=== PATIENT | male | born 1960 | race African-American/Black ===

== ENCOUNTER 2016-05-01 01:45 | Inpatient (IN) | payer OTHER ==
[~2016-05-01] VITALS: Ht 182.9 cm; Wt 122.5 kg
[2016-05-01 02:26] LABS: PLATELET COUNT 212 x10^3mcL (130-400); RED CELL DISTRIBUTION WIDTH 12.6 % (11.5-14.5)
[2016-05-01 02:29] LABS: BASOPHIL % 2.1 % (0-2)
[2016-05-01 02:34] LABS: CALCIUM 8.3 mg/dL (8.5-10.1); CHLORIDE SERUM 104 mmol/L (98-107); GFR1 > 60 mL/min; GLUCOSE SERUM 150 mg/dL (74-106); POTASSIUM SERUM 3.7 mmol/L (3.5-5.1); SODIUM SERUM 142 mmol/L (136-145)
[2016-05-01 02:39] LABS: ALBUMIN 3.5 g/dL (3.4-5.0); ALKALINE PHOSPHATASE 86 U/L (46-116); ALT/SGPT 32 U/L (16-63); AST/SGOT 14 U/L (15-37); BILIRUBIN TOTAL 0.65 mg/dL (0.20-1.00)
[2016-05-01] MEDS ORDERED: GLYBURIDE5 MG PO (03:51)
[2016-05-01] MEDS ORDERED: NOR10 PO (03:51)
[2016-05-01] MEDS ORDERED: HYDROCHLOROTHIA25 MG PO (03:52)
[2016-05-01] MEDS ORDERED: TERAZOSIN HCL2 MG PO (03:52)
[2016-05-01 04:28] LABS: MAGNESIUM 2.1 mg/dL (1.8-2.4); PHOSPHOROUS 3.3 mg/dL (2.5-4.9); T3 TOTAL 1.56 ng/mL
[2016-05-01 04:29] LABS: CHOLESTEROL/HDL RATIO 2.9
[2016-05-01 04:34] LABS: FREE T4 0.9 ng/dL (0.76-1.46); FREE THYROXINE INDEX 2.1 ug/dL (1.4-4.5); T4(THYROXINE) 6.3 ug/dL (4.7-13.3)
[2016-05-01 11:19] VITALS: BP 146/94
[2016-05-01 12:00] VITALS: BP 132/72
[2016-05-01 14:14] VITALS: BP 105/72
== END 2016-05-01 16:24 | disposition left against medical advice (07) | DRG 206 ==
LOC: ED 01:45 → DU 02:30
PROVIDERS: Emergency Medicine; ADMIT Family Medicine
DX: M94.0 Chondrocostal junction syndrome [Tietze] (principal); D68.69 Other thrombophilia; E11.9 Type 2 diabetes mellitus without complications; K72.90 Hepatic failure, unspecified without coma; I16.0 Hypertensive urgency; G89.29 Other chronic pain; M54.5 Low back pain; D72.828 Other elevated white blood cell count; M10.9 Gout, unspecified; I25.2 Old myocardial infarction; Z79.84 Long term (current) use of oral hypoglycemic drugs
CPT/HCPCS: 80307; 82962; 83880; 84439; G0480; J1100; J2270; J7030; Q0092